=== PATIENT | male | born 1940 | race Caucasian/White ===

== ENCOUNTER 2017-04-06 05:58 | Inpatient (IN) | payer OTHER, BC ==
[2017-04-03 10:41] VITALS: BMI 35.2
[~2017-04-06 05:58] MED LIST: PANTOPRAZOLE 40 MG TABLET (FP) PO ONE
[2017-04-06] MEDS ORDERED: CEFAZOLIN 2 GM in DEXTROSE 5%-WATER - 50 ML IVPB ONE (06:03)
[2017-04-06] MEDS ORDERED: CELECOXIB 200 MG CAPSULE PO ONE (06:03)
[2017-04-06] MEDS ORDERED: ROPIVICAINE 0.2%/MORPH PF/KETOROLAC - 51ML DISP.SYRINGE IA ONE ×2 (06:03→11:10)
[2017-04-06] MEDS ORDERED: GABAPENTIN 300 MG CAPSULE (FP) PO ONE (06:03)
[2017-04-06] MEDS ORDERED: TRANEXAMIC ACID 1000 MG/10 ML VIAL IVPUSH ONE (06:03)
[2017-04-06] MEDS ORDERED: oxyCODONE HCL 10 MG SUSTAINED ACTING TABLET PO ONE (06:03)
[2017-04-06] MEDS ORDERED: MIDAZOLAM HCL 2 MG/2 ML SINGLE DOSE VIAL ONE (06:56)
[2017-04-06] MEDS ORDERED: DEXAMETHASONE SOD PHOSPHATE/PF 10 MG/ML SDV ONE (06:57)
[2017-04-06] MEDS ORDERED: SODIUM CHLORIDE 0.9% P/F 10 ML VIAL IJ ONE ×3 (06:57→07:52)
[2017-04-06] MEDS ORDERED: BUPIVACAINE HCL/PF (5 MG/ML) 30 ML VIAL IJ ONE (06:57)
[2017-04-06] MEDS ORDERED: ceFAZolin SODIUM 1 GM VIAL ONE ×3 (07:29→07:49)
[2017-04-06] MEDS ORDERED: VANCOMYCIN 1,000 MG VIAL (RESTRICTED TO ID ONLY) ONE (07:29)
--- NOTE | 2017-04-06 07:46 | HP ---
Admitting History and Physical - Admission Chief Complaint: Right knee OA x years History of Present Illness: 77 year old male presenting in regard to his right knee. Longstanding history of right knee osteoarthritis. Complains of pain, stiffness, limited ROM and difficulty ambulating and with ADLs. Patient has failed injections, exercise program, PO medications and activity modification. At this point patient would like to proceed with a right total knee arthroplasty. History Source: Patient - Past Medical History Cardiovascular: Yes: CAD, HTN Renal/: Yes: BPH Psych: Yes: Anxiety, Depression Endocrine: Yes: Diabetes Mellitus - Past Surgical History Additional Past Surgical History: See written H&P - Smoking History Smoking history: Never smoked Have you smoked in the past 12 months: No - Alcohol/Substance Use Hx Alcohol Use: No Home Medications - Allergies Allergies/Adverse Reactions: Allergies Allergy/AdvReac Type Severity Reaction Status Date / Time No Known Allergies Allergy Verified 04/03/17 08:45 - Home Medications Home Medications: Ambulatory Orders Alprazolam [Xanax Xr] 0.5 mg PO HS 04/03/17 Atenolol/Chlorthalidone [Tenoretic 100 Tablet] 100 mg PO DAILY 04/03/17 Atorvastatin Ca [Lipitor] 40 mg PO HS 04/03/17 Canagliflozin [Invokana] 100 mg PO DAILY 04/03/17 Doxazosin Mesylate 8 mg PO DAILY 04/03/17 Insulin (Levemir) [Levemir Flexpen -] 60 units SQ HS 04/03/17 Insulin Aspart [Novolog] 24 unit SQ TID 04/03/17 Isosorbide Mononitrate 80 mg PO DAILY 04/03/17 Paroxetine HCl [Paxil -] 20 mg PO DAILY 04/03/17 Prasugrel HCl [Effient] 10 mg PO DAILY 04/03/17 Pregabalin [Lyrica] 100 mg PO TID 04/03/17 Review of Systems - Review of Systems Musculoskeletal: reports: Crepitus (Right knee), Decreased ROM (Right knee), Joint Pain (Right knee), Joint Swelling (Right knee) Physical Examination Vital Signs: Vital Signs Temperature 98.7 F 04/06/17 06:35 Pulse Rate 56 L 04/06/17 06:35 Respiratory Rate 19 04/06/17 06:35 Blood Pressure 133/66 04/06/17 06:35 O2 Sat by Pulse Oximetry (%) 97 04/06/17 07:07 Constitutional: Yes: Well Nourished, No Distress Eyes: Yes: Conjunctiva Clear HENT: Yes: Atraumatic, Normocephalic Neck: Yes: Supple Cardiovascular: Yes: Regular Rate and Rhythm Respiratory: Yes: Regular Gastrointestinal: Yes: Soft ...Rectal Exam: Yes: Deferred Musculoskeletal: Yes: Joint Stiffness (Right knee), Joint Swelling (Right knee) Assessment/Plan 77 year old male with longstanding right knee osteoarthritis. Patient complains of pain, stiffness, limited ROM and difficulty ambulating and with ADLs. Patient had failed conservative treatment. Proceed with a right total knee arthroplasty.
[2017-04-06] MEDS ORDERED: ePHEDrine SULFATE 50 MG/1 ML AMPULE ONE (07:51)
[2017-04-06] MEDS ORDERED: SUCCINYLCHOLINE CHLORIDE 200 MG/10 ML VIAL ONE (07:51)
[2017-04-06] MEDS ORDERED: TRANEXAMIC ACID 1000 MG/10 ML VIAL ONE ×2 (08:22→08:24)
[2017-04-06] MEDS ORDERED: KCL 10 MEQ IVPB 100 ML IVPB ONE ×2 (10:09→10:10)
[2017-04-06] MEDS ORDERED: VANCOMYCIN 1,000 MG VIAL (RESTRICTED TO ID ONLY) IVPB ONE (10:42)
[2017-04-06] MEDS ORDERED: TRANEXAMIC ACID 1000 MG/10 ML VIAL IVPB ONE (10:42)
[2017-04-06] MEDS ORDERED: ONDANSETRON 4 MG/2 ML VIAL IVPB PRN (11:46)
[2017-04-06] MEDS ORDERED: MAGNESIUM HYDROX 2400MG/30ML ORAL SUSPENSION 30 ML CUP PO PRN (11:46)
[2017-04-06] MEDS ORDERED: MAG HYDROX/AL HYDROX/SIMETH 30 ML UNIT-DOSE CUP PO PRN (11:46)
[2017-04-06] MEDS ORDERED: oxyCODONE HCL 5 MG TABLET PO PRN ×2 (11:51)
--- NOTE | 2017-04-06 11:56 | OP ---
Operative Note - Note: Operative Date: 04/06/17 Pre-Operative Diagnosis: right knee OA Operation: right TKA Post-Operative Diagnosis: Same as Pre-op Surgeon: Cliff Daly Customer Care Coordinator: Nuzhat Beverly Anesthesia: Spinal Estimated Blood Loss (mls): 100
[2017-04-06] MEDS ORDERED: LACTATED RINGERS SOLUTION 1,000 ML IV SCH (12:00)
[2017-04-06] MEDS ORDERED: ACETAMINOPHEN 1000 MG/100 ML VIAL (NON FORMULARY) IVPB ONE (12:30)
[2017-04-06] MEDS: KETOROLAC TROMETHAMINE 30 MG/1 ML VIAL IVPUSH SCH ×2 (12:30→17:59)
[2017-04-06] MEDS: traMADol HCL 50 MG TABLET PO SCH ×2 (12:30→18:00)
[2017-04-06] MEDS: PREGABALIN 50 MG CAPSULE PO SCH ×2 (13:29→22:39)
[2017-04-06] MEDS ORDERED: POTASSIUM CHLORIDE TABS 10 MEQ TABLET.ER (FP) PO ONE (13:30)
[2017-04-06 15:29] LABS: ANION GAP 6 (8-16); CALCIUM 8.3 mg/dl (8.4-10.2); CO2 34 mmol/L (22-28); GLUCOSE,RANDOM 162 mg/dl (74-106)
[2017-04-06] MEDS: INSULIN (NOVOLOG) ASPART 100 UNITS/ML 10ML VIAL SQ SCH (17:00)
[2017-04-06] MEDS: ACETAMINOPHEN 325 MG TABLET (FP) PO SCH (18:01)
[2017-04-06] MEDS: CEFAZOLIN 2 GM/D5W 50 ML IVPB SCH (18:03)
[2017-04-06] MEDS ORDERED: POTASSIUM CHLORIDE TABS 20 MEQ TABLET.ER (FP) PO ONE (18:45)
--- NOTE | 2017-04-06 21:12 | SPEC ---
DATE OF OPERATION: 04/06/2017 PREOPERATIVE DIAGNOSIS: Right knee osteoarthritis. POSTOPERATIVE DIAGNOSIS: Right knee osteoarthritis. PROCEDURE: Right total knee replacement. ATTENDING: Ignacia Ballard M.D. PACKING FLOOR WORKER: Doretha Jaime ANESTHESIA: Spinal plus sedation. ESTIMATED BLOOD LOSS: 100 mL. COMPLICATIONS: None. SPECIMENS: Resected bone was sent for pathology and analysis. DISPOSITION: The patient was transferred to the PACU in stable condition. IMPLANTS USED: [place] [employer] size 4 femoral component, size 5 tibial component, 32-mm patellar component, 11-mm posterior stabilized polyethylene component. INDICATION: This is a 77-year-old male who presented to the office complaining of severe right knee pain. He was seen and examined by Dr. Ballard and diagnosed with severe right knee osteoarthritis. The patient had tried multiple nonoperative modalities for treatment, but these ceased to be effective. He was therefore indicated for a right total knee replacement. The risks, benefits, and alternatives to the procedure were explained again to the patient in great detail, and he elected to proceed with the surgery. DESCRIPTION OF PROCEDURE: On the day of surgery, the patient was taken to the operating room and placed on the OR table. Spinal anesthesia was administered by the anesthesiologist. The patient was then positioned supine on the table and all bony prominences were padded. A nonsterile tourniquet was placed on the proximal thigh. The knee was then prepped and draped in the usual sterile fashion and intravenous antibiotics were given for infection prophylaxis. A surgical time-out was then performed with the team, and the patients identity, procedure, side, availability of implants, and the administration of antibiotics was confirmed. The leg was then elevated and exsanguinated, and the tourniquet was inflated. With the knee flexed, a midline incision was made and carried down through the subcutaneous fat to the underlying retinaculum. A medial parapatellar arthrotomy was performed. This was followed by a subperiosteal dissection of the tissue off the proximal, medial tibia. A portion of fat pad was removed from under the patellar tendon, and a small portion of fat was excised off the distal supracondylar femur. The knee was then flexed further and the anterior horn of the lateral meniscus was released from the midline. Next, the anterior and posterior cruciate ligaments were transected. Osteophytes were removed from both the femur and tibia. Grade 4 changes were noted diffusely throughout the knee. Hohmann retractors were then placed around the distal femur. The starting drill was used to enter the intramedullary canal. The starting point had been chosen by checking the radiographs and anatomy. Proper alignment and intramedullary placement was then confirmed by placing the long narrow skip into the femur. Next, the distal femoral cutting guide was adjusted to 6 degrees of valgus and pinned to the femur. The bone resection was assessed using an radha-wing. An approximately 10mm distal cut was made and the cut pieces measured. Once this was complete, the sizing guide was used to determine which size femoral component should be used. Next, the appropriately sized 4-in-1 cutting block was then placed at the correct amount of external rotation and the radha wing was used to assure that there would be no notching of the anterior cortex of the femur. Once this was done, Hohmann retractors were used to protect the medial and lateral collateral ligaments, and all appropriate bone cuts were made. Attention was then turned to the tibia. Hohmann retractors were used to translate the tibia anteriorly and protect the collateral ligaments. The medial and lateral menisci were removed. The extramedullary tibial alignment guide was then placed and adjusted for rotation, varus/valgus, and slope. The height of the cutting block was adjusted to the level of the desired bone resection and then pinned in place. The proximal tibia was then cut with a saw and the bone was removed and measured. Once this was completed, trial components were placed and the knee was taken through a full range of motion. Soft tissue balance was assessed in both flexion and extension and found to be appropriate. The knee was stable throughout the full range of motion. The knee was then put into extension and the patella everted. The synovium around the patella was circumscribed with electrocautery. A caliper was used to measure the patellar thickness and a saw was then used to resect the patella at the chondro-osseous junction. The cut surface was then sized and drilled for the appropriate patellar button, with care taken to medialize it. A trial patella was then placed and the knee was again taken through a full range of motion. The knee was found to have both good balance and good patellar tracking. All of the components were removed except the tibial base plate. The appropriate instrumentation was used to drill and punch the proximal tibia for the keel of the final component. All bony surfaces were then cleaned with pulsatile lavage and dried. Bone cement was then prepared on the back table, and final components were cemented in place in the usual fashion. Extruded cement was removed. The polyethylene trial was placed, the knee was put into extension, and axial pressure was applied for compression while the cement hardened. The patellar button was similarly cemented into place. Once the cement had hardened, the knee was taken through a full range of motion to assess stability, balance, and patellar tracking. This was found to be optimal and the trial polyethylene was exchanged for the appropriately sized real implant. The wound was then thoroughly irrigated with normal saline. No. 1 Polysorb and 0 VLoc 180 barbed sutures were used to close the arthrotomy. No. 1 Polysorb and 2-0 Polysorb sutures were used in the subcutaneous tissues. The skin was closed using both 3-0 VLoc 90 suture in a running subcuticular fashion and SwiftSet skin adhesive. Once this was completed a sterile Aquacel dressing and compressive Yonis-wrap was applied. The tourniquet was then deflated and the patient was awakened and taken to the PACU in stable condition. ADDENDUM: After final implants were placed, a 3-minute loop Betadine lavage was performed according to the [facility]UST protocol. Once this was completed, the wound was thoroughly irrigated with normal saline via pulsatile lavage and wound closure was then begun. IGNACIA BALLARD M.D. 1 CALVIN/[id number]
[2017-04-06] MEDS: ALPRAZolam 0.25 MG TABLET PO SCH (22:37)
[2017-04-06] MEDS: ASCORBIC ACID 500 MG TABLET (FP) PO SCH (22:39)
[2017-04-06] MEDS: SENNOSIDES/DOCUSATE COMBO (SENNA PLUS) TABLET (UD) PO SCH (22:39)
[2017-04-06] MEDS: INSULIN DETEMIR 100 UNITS/ML MDV SQ SCH (22:40)
[2017-04-06] MEDS: ATORVASTATIN CA 40 MG TABLET (FP) PO SCH (22:40)
[2017-04-06] MEDS: POTASSIUM CHLORIDE TABS 20 MEQ TABLET.ER (FP) PO SCH (22:41)
[2017-04-06] MEDS: oxyCODONE HCL 10 MG SUSTAINED ACTING TABLET PO SCH (22:41)
[2017-04-07] MEDS: KETOROLAC TROMETHAMINE 30 MG/1 ML VIAL IVPUSH SCH ×3 (00:06→11:49)
[2017-04-07] MEDS: traMADol HCL 50 MG TABLET PO SCH ×4 (00:06→18:10)
[2017-04-07] MEDS: ACETAMINOPHEN 325 MG TABLET (FP) PO SCH ×4 (00:07→18:10)
[2017-04-07] MEDS: CEFAZOLIN 2 GM/D5W 50 ML IVPB SCH (01:10)
[2017-04-07] MEDS: PREGABALIN 50 MG CAPSULE PO SCH ×3 (05:56→21:42)
[2017-04-07] MEDS: INSULIN (NOVOLOG) ASPART 100 UNITS/ML 10ML VIAL SQ SCH ×3 (07:21→16:33)
[2017-04-07] MEDS: ASPIRIN 325 MG TABLET PO SCH (08:04)
[2017-04-07 08:06] LABS: ANION GAP 6 (8-16); CALCIUM 8.3 mg/dl (8.4-10.2); CO2 32 mmol/L (22-28); CREATININE 0.9 mg/dl (0.6-1.3); GLUCOSE,RANDOM 133 mg/dl (74-106)
[2017-04-07] MEDS ORDERED: PT OWN MED DRAWER 7, Y5N ONE (09:12)
[2017-04-07] MEDS: CHLORTHALIDONE 25 MG TABLET PO SCH (09:15)
[2017-04-07] MEDS: PRASUGREL HCL 10 MG TAB PO SCH (09:15)
[2017-04-07] MEDS: PANTOPRAZOLE 40 MG TABLET (FP) PO SCH (09:15)
[2017-04-07] MEDS: MULTIVITAMINS (DAILY MVI) TABLET (FP) PO SCH (09:16)
[2017-04-07] MEDS: POTASSIUM CHLORIDE TABS 20 MEQ TABLET.ER (FP) PO SCH ×2 (09:16→21:42)
[2017-04-07] MEDS: ATENOLOL 50 MG TABLET (FP) PO SCH (09:16)
[2017-04-07] MEDS: CELECOXIB 200 MG CAPSULE PO SCH (09:16)
[2017-04-07] MEDS: ASCORBIC ACID 500 MG TABLET (FP) PO SCH ×2 (09:16→21:42)
[2017-04-07] MEDS: PARoxetine HCL 20 MG TABLET (FP) PO SCH (09:16)
[2017-04-07] MEDS: SENNOSIDES/DOCUSATE COMBO (SENNA PLUS) TABLET (UD) PO SCH ×2 (09:16→21:40)
[2017-04-07] MEDS: DOXAZOSIN MESYLATE 2 MG TABLET (FP) PO SCH (09:17)
[2017-04-07] MEDS: oxyCODONE HCL 10 MG SUSTAINED ACTING TABLET PO SCH ×2 (09:22→21:41)
[2017-04-07 09:33] LABS: MCHC 33.4 g/dl (32.0-35.9); PLATELET COUNT 184 K/MM3 (134-434); RDW 16.1 % (11.9-15.9); WHITE BLOOD COUNT 6.6 K/mm3 (4.0-10.0)
[2017-04-07 09:36] LABS: MCH 26.2 pg (25.7-33.7); MEAN CELL VOLUME 78.5 fl (80-96); MEAN PLT VOLUME 8.9 fl (7.5-11.1)
[2017-04-07] MEDS ORDERED: CHLORTHALIDONE PO SCH (10:00)
[2017-04-07] MEDS ORDERED: PATIENT'S OWN MEDICATION (NON-FORMULARY) (Canagliflozin [Invokana] 100 MG) PO SCH (10:00)
[2017-04-07] MEDS ORDERED: ATENOLOL PO SCH (10:00)
[2017-04-07] MEDS ORDERED: ISOSORBIDE MONONITRATE PO SCH (10:00)
[2017-04-07] MEDS ORDERED: [UNRECOGNIZED DRUG - OTHER] PO SCH (10:00)
--- NOTE | 2017-04-07 13:17 | PN ---
Progress Note (short form) - Note Progress Note: 77M POD1 s/p R TKR under spinal anesthetic with adductor canal and selective tibial blocks doing well. Pt states that pain is well controlled, reports no anesthetic complications. Sensory and motor function are intact in bilateral lower extremities.
--- NOTE | 2017-04-07 20:14 | PN ---
Progress Note (short form) - Note Progress Note: Pt seen and examined. Doing very well. Walked 600+ feet. Pain well controlled. AVSS Selected Entries 04/07/17 18:38 Temperature 98.2 F Pulse Rate 64 Respiratory 18 Rate Blood Pressure 117/55 Laboratory Tests 04/07/17 04/07/17 04/07/17 07:10 07:30 07:30 WBC 6.6 Hgb 12.9 Hct 38.8 Plt Count 184 Sodium 139 Potassium 3.2 L Chloride 101 Carbon Dioxide 32 H Anion Gap 6 L BUN 18 Creatinine 0.9 POC Glucometer 138 Random Glucose 133 H Calcium 8.3 L Gen: NAD RLE: c/d/i, NVID A/P 77yo male POD#1 s/p R TKA 1. PT/OOB - WBAT RLE 2. D/C in AM after PT
--- NOTE | 2017-04-07 20:22 | DS ---
Physical Examination Vital Signs: Vital Signs Temperature 98.2 F 04/07/17 18:38 Pulse Rate 64 04/07/17 18:38 Respiratory Rate 18 04/07/17 18:38 Blood Pressure 117/55 04/07/17 18:38 O2 Sat by Pulse Oximetry (%) 96 04/06/17 16:22 Labs: CBC, BMP 04/07/17 07:30 04/07/17 07:30 Discharge Summary Reason For Visit: RIGHT KNEE OSTEOARTHRITIS Current Active Problems Osteoarthritis of right knee (Acute) Procedures: Principal: right TKA Hospital Course: Admitted for elective surgery. Procedure performed without complications. Pt received postoperative antibiotic prophylaxis and DVT ppx. Ambulated with physical therapy. Stable for discharge home with outpatient followup. Condition: Stable - Instructions Diet, Activity, Other Instructions: Dr. Daly - Knee Replacement Instructions Keep the Aquacel dressing on until removed by Dr. Daly in 10-14 days - it is antibacterial and waterproof and you can shower with it on. Call the office for a follow-up appointment with Dr. Daly in 10-14 days. [phone] Take one Aspirin 325mg daily for 6 weeks to prevent blood clots in your legs. Take one Pantoprazole 40mg daily for 6 weeks to protect against heartburn and ulcers. Take a multivitamin, extra vitamin C supplement, and stool softener daily. For pain: *Mild pain (1-3/10): Take 1 Tramadol tablet every 4 hours as needed. Moderate pain (4-6/10): Take 1 Tramadol tablet and 1 Percocet tablet every 4 hours as needed. Severe pain (7-10/10): Take 1 Tramadol tablet and 2 Percocet tablets every 4 hours as needed. Activity: You can put as much weight on the operative leg as you want. Right after you get home, there will be a physical therapist coming to your house to help you walk around and bend/straighten your knee. After your follow-up appointment, you will be sent for more intensive outpatient physical therapy which will include machines and equipment that the home therapist cannot bring to your house. Always use a walker or cane for balance and to prevent falls. Disposition: VNS/HOME HEALTH CARE - Home Medications Comprehensive Discharge Medication List: Ambulatory Orders Alprazolam [Xanax Xr] 0.5 mg PO HS 04/03/17 Atenolol/Chlorthalidone [Tenoretic 100 Tablet] 100 mg PO DAILY 04/03/17 Atorvastatin Ca [Lipitor] 40 mg PO HS 04/03/17 Canagliflozin [Invokana] 100 mg PO DAILY 04/03/17 Doxazosin Mesylate 8 mg PO DAILY 04/03/17 Insulin (Levemir) [Levemir Flexpen -] 60 units SQ HS 04/03/17 Insulin Aspart [Novolog Flexpen] 24 unit SQ TID 04/03/17 Isosorbide Mononitrate 80 mg PO DAILY 04/03/17 Paroxetine HCl [Paxil -] 20 mg PO DAILY 04/03/17 Prasugrel HCl [Effient] 10 mg PO DAILY 04/03/17 Pregabalin [Lyrica] 100 mg PO TID 04/03/17 Ascorbic Acid [Vitamin C -] 500 mg PO BID tablet 04/07/17 Aspirin [ASA -] 325 mg PO DAILY@0800 tablet 04/07/17 Multivitamins [Multivit ([facility] Formul[facility])] 1 tab PO DAILY tab 04/07/17 Oxycodone HCl/Acetaminophen [Percocet 5-325 mg Tablet] 1 - 2 tab PO Q4H PRN #60 tablet MDD 8 04/07/17 Pantoprazole Sodium [Protonix -] 40 mg PO DAILY #40 tab 04/07/17 Sennosides/Docusate Sodium [Pericolace -] 2 tablet PO BID tablet 04/07/17 Tramadol HCl [Ultram -] 50 mg PO Q4H PRN #90 tablet MDD 6 04/07/17
[2017-04-07] MEDS: INSULIN DETEMIR 100 UNITS/ML MDV SQ SCH (21:42)
[2017-04-07] MEDS: ALPRAZolam 0.25 MG TABLET PO SCH (21:42)
[2017-04-07] MEDS: ATORVASTATIN CA 40 MG TABLET (FP) PO SCH (21:42)
[2017-04-08] MEDS: ACETAMINOPHEN 325 MG TABLET (FP) PO SCH ×3 (00:05→12:14)
[2017-04-08] MEDS: traMADol HCL 50 MG TABLET PO SCH ×3 (00:05→12:14)
[2017-04-08] MEDS: PREGABALIN 50 MG CAPSULE PO SCH (05:39)
[2017-04-08 06:44] VITALS: BP 143/43; PULSE 65; TEMP 98.6
[2017-04-08] MEDS: INSULIN (NOVOLOG) ASPART 100 UNITS/ML 10ML VIAL SQ SCH (07:18)
[2017-04-08] MEDS: ASPIRIN 325 MG TABLET PO SCH (08:05)
[2017-04-08 08:11] LABS: MCH 25.7 pg (25.7-33.7); MCHC 32.7 g/dl (32.0-35.9); MEAN CELL VOLUME 78.7 fl (80-96); MEAN PLT VOLUME 8.5 fl (7.5-11.1); PLATELET COUNT 173 K/MM3 (134-434); WHITE BLOOD COUNT 7.4 K/mm3 (4.0-10.8)
[2017-04-08] MEDS: DOXAZOSIN MESYLATE 2 MG TABLET (FP) PO SCH (09:22)
[2017-04-08] MEDS: CELECOXIB 200 MG CAPSULE PO SCH (09:23)
[2017-04-08] MEDS: CHLORTHALIDONE 25 MG TABLET PO SCH (09:23)
[2017-04-08] MEDS: PANTOPRAZOLE 40 MG TABLET (FP) PO SCH (09:24)
[2017-04-08] MEDS: PARoxetine HCL 20 MG TABLET (FP) PO SCH (09:24)
[2017-04-08] MEDS: POTASSIUM CHLORIDE TABS 20 MEQ TABLET.ER (FP) PO SCH (09:24)
[2017-04-08] MEDS: oxyCODONE HCL 10 MG SUSTAINED ACTING TABLET PO SCH (09:24)
[2017-04-08] MEDS: ASCORBIC ACID 500 MG TABLET (FP) PO SCH (09:25)
[2017-04-08] MEDS: MULTIVITAMINS (DAILY MVI) TABLET (FP) PO SCH (09:25)
[2017-04-08] MEDS: ATENOLOL 50 MG TABLET (FP) PO SCH (09:25)
[2017-04-08] MEDS: PRASUGREL HCL 10 MG TAB PO SCH (10:00)
--- NOTE | 2017-04-13 10:55 | PATH ---
Surgical Pathology Report Patient Name: SEFERINO MULTANI Med. Rec. #: [id number] /Age/Gender: 1940 (Age: 77) / M Account: [id number] Location: [facility] MED-SURG Taken: 04/07/2017 Received: 04/08/2017 Reported: 04/13/2017 Physicians: Cliff Daly M.D. Specimen(s) Received RIGHT KNEE BONE Clinical History Right knee osteoarthritis Final Diagnosis KNEE BONE, RIGHT, TOTAL KNEE REPLACEMENT: DEGENERATIVE JOINT DISEASE. Electronically Signed Rhina Carson M.D. Gross Description Received in formalin labeled "right knee bone," is a 14.5 x 12.5 x 2.0 cm aggregate of multiple foreman-yellow, irregular portions of bone. The tibial plateau measures 7.8 x 5.3 x 1.5 cm. There is a 1.5 cm greatest dimension area of eburnation present. Remaining articular surfaces are foreman-yellow and focally granular. The underlying trabecular bone is yellow and hard. Cartographic Aide sections are submitted in one cassette, following decalcification. 04/09/201704/09/2017
== END 2017-04-08 13:45 | disposition home health service (06) | DRG 470 ==
LOC: FM/S 05:58
PROVIDERS: ADMIT Student in an Organized Health Care Education/Training Program; ATTEND Student in an Organized Health Care Education/Training Program
PROC: 0SRC0J9 Replacement of Right Knee Joint with Synthetic Substitute, Cemented, Open Approach (ICD-10-PCS; principal; 2017-04-06 08:45)
DX: M17.11 Unilateral primary osteoarthritis, right knee (principal)
CPT/HCPCS: 36415; 73560-TC-RT; 80048; 84132; 85027; 88304-TC; 88311-TC; 94010; 94660; 94760; 97116-GP; 97162-GP